=== PATIENT | female | born 1960 | race Caucasian/White ===

== ENCOUNTER 2017-01-25 18:37 | Inpatient (IN) | payer OTHER ==
[~2017-01-25] VITALS: Ht 167.6 cm; Wt 201.8 kg
[~2017-01-25 18:37] MED LIST: ACET-907; GABA600T2; HYDR25TA4; LISI-607; TRAM50TA2; VICODIN
[2017-01-25] MEDS ORDERED: MORPHINE SULFATE INJ 4 MG/ML DISP.SYRIN ONE (19:15)
[2017-01-25] MEDS ORDERED: ONDANSETRON HCL/PF 4 MG/2 ML VIAL ONE (19:15)
--- NOTE | 2017-01-25 19:20 | NUR ---
LAC #20 IVACCESS. BLOOD SAMPLE COLLECTED SENT TO LAB
[2017-01-25 19:28] LABS: BASOPHILS % (AUTO) 0.4 % (0.0-2.0); EOSINOPHILS # (AUTO) 0.2 /CMM (0.0-0.7); EOSINOPHILS % (AUTO) 2.1 % (0.0-6.0); HEMATOCRIT 34 % (33-45); HEMOGLOBIN 11.3 g/dL (11.5-14.8); LYMPHOCYTES # (AUTO) 1.1 /CMM (0.8-4.8); LYMPHOCYTES % (AUTO) 14.5 % (20.0-44.0); MEAN CORPUSCULAR HEMOGLOBIN 27 PG (26.0-33.0); MEAN CORPUSCULAR HGB CONC 34 g/dl (31.0-36.0); MEAN CORPUSCULAR VOLUME 79 fL (82-100); MONOCYTES # (AUTO) 0.6 /CMM (0.1-1.30); MONOCYTES % (AUTO) 7.8 % (2.0-12.0); NEUTROPHILS # (AUTO) 5.8 /CMM (1.8-8.9); NEUTROPHILS % (AUTO) 75.2 % (43.0-81.0); PLATELET COUNT (AUTO) 286 /CMM (150-450); RDW COEFFICIENT OF VARIATION 15.8 (11.5-15.0); RED BLOOD CELL COUNT(AUTO) 4.23 MIL/uL (4.0-5.2); WHITE BLOOD COUNT (AUTO) 7.7 K/uL (4.3-11.0)
[2017-01-25] MEDS ORDERED: IV NS 0.9% 1,000 ML BAG IV ONE (19:30)
[2017-01-25] MEDS ORDERED: ONDANSETRON HCL/PF 4 MG/2 ML VIAL IVP ONE (19:30)
[2017-01-25] MEDS ORDERED: MORPHINE SULFATE INJ 2 MG/ML DISP.SYRIN IV ONE (19:30)
--- NOTE | 2017-01-25 19:31 | NUR ---
EKG IN PROGRESS
[2017-01-25 19:43] LABS: INR 1.1 (0.87-1.13); PROTHROMBIN TIME 11.5 SECS (9.5-12.7)
[2017-01-25 19:46] LABS: ALANINE AMINOTRANSFERASE 39 U/L (12-78); ALBUMIN 3.4 g/dL (3.4-5.0); ALKALINE PHOSPHATASE 16 U/L (46-116); ASPARTATE AMINOTRANSFERASE 49 U/L (15-37); BILIRUBIN,DIRECT 0.2 mg/dL (0.0-0.2); BILIRUBIN,TOTAL 0.6 mg/dL (0.2-1.0); CALCIUM, SERUM 9.1 mg/dL (8.5-10.1); CARBON DIOXIDE 28 mmol/L (21-32); CHLORIDE 98 mmol/L (98-107); CREATININE 1.4 mg/dL (0.6-1.3); GLUCOSE 130 mg/dL (74-106); LIPASE 146 U/L (73-393); POTASSIUM 3.2 mmol/L (3.5-5.1); SODIUM SERUM 134 mmol/L (136-145); TOTAL PROTEIN, SERUM 6.8 g/dL (6.4-8.2)
[2017-01-25 19:47] LABS: TROPONIN I < 0.017 ng/mL (0.00-0.056)
[2017-01-25 19:54] LABS: UREA NITROGEN, BLOOD 30 mg/dL (7-18)
--- NOTE | 2017-01-25 20:06 | NUR ---
PT TAKENT TO XRAY VIA RACHEL
--- NOTE | 2017-01-25 20:06 | NUR ---
URINE SAMPLE COLLECTED SENT TO LAB
[2017-01-25] MEDS ORDERED: POTASSIUM CHLORIDE 20 MEQ TAB.PRT.SR PO ONE ×2 (20:30→20:43)
[2017-01-25 20:40] LABS: APPEARANCE,URINE Clear (CLEAR); BILIRUBIN,URINE Negative (NEGATIVE); BLOOD, URINE Trace-intact Ery/uL (NEGATIVE); COLOR,URINE Yellow (YELLOW); KETONES,URINE Negative (NEGATIVE); LEUKOCYTE ESTERASE ,URINE Small (NEGATIVE); NITRITE, URINE Positive (NEGATIVE); PH,URINE 5.5 (5.0-8.0); PROTEIN,URINE Negative (NEGATIVE); UGLUCOSE Negative (NEGATIVE)
[2017-01-25 20:52] LABS: BACTERIA,URINE Many /HPF (None Seen); SQUAMOUS EPITHELIAL CELL,UR Few /HPF (None Seen); WBC,URINE 21-50 /HPF (0-3)
[2017-01-25] MEDS ORDERED: LEVOFLOXACIN 500 MG /D5W 100ML 100 ML IV ONE (21:11)
[2017-01-25 21:15] VITALS: BP 109/50
--- NOTE | 2017-01-25 21:16 | NUR ---
CALLED INA AT [facility] AND WAS INFORMED THERE ARE NO ADULT BEDS AVAILABLE AT [facility] OR ANY [facility] FACILITY
[2017-01-25] MEDS ORDERED: LEVOFLOXACIN 500 MG /D5W 100ML 500 MG/100 ML PIGGYBACK IV ONE (21:30)
[2017-01-25] MEDS ORDERED: LISI10TA5 PO (21:34)
[2017-01-25] MEDS ORDERED: FURO20TA4 PO (21:34)
[2017-01-25] MEDS ORDERED: GABA600T2 PO (21:34)
[2017-01-25] MEDS ORDERED: DOCU-170 PO (21:34)
[2017-01-25] MEDS ORDERED: POTA10CA43 PO (21:34)
[2017-01-25] MEDS ORDERED: HYDR25TA4 PO (21:34)
[2017-01-25] MEDS ORDERED: FLUT16SP16 NS (21:34)
[2017-01-25] MEDS ORDERED: LORA10TA7 PO (21:34)
--- NOTE | 2017-01-25 21:47 | NUR ---
GAVE REPORT TO DOMINGO CORTEZ .FRAN CORTEZ ADMITTING DX UTI, BACK STRAIN. JUNG STACY ADMITTING MEDSURG.
[2017-01-25] MEDS ORDERED: IV NS 0.9% 1,000 ML IV PRN (22:52)
[2017-01-25] MEDS ORDERED: HYDROCODONE/APAP 5/325MG 1 EACH TABLET PO PRN (23:00)
[2017-01-25] MEDS ORDERED: MAG HYDROX/AL HYDROX/SIMETH 30 ML UDC PO PRN (23:00)
[2017-01-25] MEDS ORDERED: MORPHINE SULFATE INJ 2 MG/ML DISP.SYRIN IV PRN (23:00)
[2017-01-25] MEDS ORDERED: LEVOFLOXACIN 500 MG /D5W 100ML 500 MG in PREMIX 1 EA IV SCH (23:00)
[2017-01-25] MEDS ORDERED: ONDANSETRON HCL/PF 4 MG/2 ML VIAL IVP PRN (23:00)
[2017-01-25] MEDS ORDERED: NA PHOS,M-B/NA PHOS,DI-BA 1 EA ENEMA RC ONE (23:00)
[2017-01-25] MEDS ORDERED: Z GUARD REMEDY 2 OZ OINT TP PRN (23:00)
[2017-01-25] MEDS ORDERED: MAGNESIUM HYDROXIDE 30 ML UDC PO PRN (23:00)
--- NOTE | 2017-01-25 23:25 | NUR ---
AWAITING FOR BARIATRIC BED GAVE REPORT TO ROLY FOR DANIELLE
--- NOTE | 2017-01-25 23:35 | NUR ---
CALLED JANE COY FOR STATUS ON BARIATRIC BED. EXPECTING CALL BACK FROM MILLED RUBBER TENDER
[2017-01-25 23:55] VITALS: BP 109/50
--- NOTE | 2017-01-25 23:55 | NUR ---
MS/RN OPENING NOTES PT ARRIVED TO UNIT VIA GURNEY FROM ER. TRANSFERRED TO [facility] BED. PT PLACED ON O2 VIA NC. BREATHING EVEN AND UNLABORED. DENIES SOB OR S/S OF DISTRESS. IV TO LAC PATENT AND INTACT, FLUSHES WELL WITH NO PAIN OR SIGNS OF INFILTRATION. ORIENTED PT TO ROOM AND CALL LIGHT/BED CONTROLS. BED IN LOW/LOCKED POSITION, CALL LIGHT IN REACH. SIDE RAILS UP. EXTREMITIES OFFLOADED. WILL CONTINUE TO MONITOR
[2017-01-26] VITALS: BP 109/50
[2017-01-26] MEDS ORDERED: NA PHOS,M-B/NA PHOS,DI-BA 1 EA ENEMA RC ONE (00:14)
--- NOTE | 2017-01-26 01:00 | NUR ---
MS/RN NOTES LEVAQUIN NON-ADMINISTERED. PT RECEIVED IN THE ER. ADMINISTERED FLEET ENEMA SCHEDULED. WILL MONITOR FOR EFFECTIVENESS.
[2017-01-26] MEDS: IV NS 0.9% 1,000 ML IV PRN ×2 (03:05→16:33)
[2017-01-26 06:35] LABS: BASOPHILS % (AUTO) 0.4 % (0.0-2.0); EOSINOPHILS # (AUTO) 0.1 /CMM (0.0-0.7); EOSINOPHILS % (AUTO) 1.5 % (0.0-6.0); HEMATOCRIT 32 % (33-45); HEMOGLOBIN 10.7 g/dL (11.5-14.8); LYMPHOCYTES # (AUTO) 0.8 /CMM (0.8-4.8); LYMPHOCYTES % (AUTO) 11.9 % (20.0-44.0); MEAN CORPUSCULAR HEMOGLOBIN 27 PG (26.0-33.0); MEAN CORPUSCULAR HGB CONC 34 g/dl (31.0-36.0); MEAN CORPUSCULAR VOLUME 79 fL (82-100); MONOCYTES # (AUTO) 0.5 /CMM (0.1-1.30); NEUTROPHILS # (AUTO) 5.2 /CMM (1.8-8.9); NEUTROPHILS % (AUTO) 79.2 % (43.0-81.0); PLATELET COUNT (AUTO) 240 /CMM (150-450); RED BLOOD CELL COUNT(AUTO) 3.97 MIL/uL (4.0-5.2); WHITE BLOOD COUNT (AUTO) 6.5 K/uL (4.3-11.0)
[2017-01-26 07:05] LABS: ALBUMIN 2.7 g/dL (3.4-5.0); BILIRUBIN,DIRECT 0.1 mg/dL (0.0-0.2); BILIRUBIN,TOTAL 0.4 mg/dL (0.2-1.0); CALCIUM, SERUM 8.5 mg/dL (8.5-10.1); MAGNESIUM 1.9 mg/dL (1.8-2.4); PHOSPHORUS 4.8 mg/dL (2.5-4.9); POTASSIUM 3.2 mmol/L (3.5-5.1)
[2017-01-26 07:07] LABS: THYROID STIMULATING HORMONE 2.382 uIU/mL (0.358-3.74)
--- NOTE | 2017-01-26 07:15 | NUR ---
MS/RN CLOSING NOTES PT ASLEEP, EASILY AROUSABLE TO NAME. ON 2LPM O2 VIA NC. BREATHING EVEN AND UNLABORED. NO S/S OF DISTRESS NOTED. DENIES PAIN AT THIS TIME, BUT NOTES TINGLING TO RIGHT HAND. IV TO LAC RUNNING IVF ORDERED. TURNED/REPOSITIONED Q2H, EXTREMITIES OFFLOADED. ALL NEEDS MET AND ATTENDED. FLEET ENEMA ADMINISTERED WITH 1 MEDIUM SIZE BM. BED IN LOW/LOCKED POSITION, CALL LIGHT IN REACH. SIDE RAILS UP. ENDORSED TO AM SHIFT DANIELLE.
--- NOTE | 2017-01-26 07:20 | NUR ---
RN NOTES RECEIVED PT IN BED, SLEEPING IN SEMI-FOWLERS POSITION. NO SOB OR SIGNS OF DISTRESS. IV ON LAC RUNNING NS AT 75ML/HR. SAFETY MEASURES ARE IN PLACE. WILL CONTINUE TO MONITOR.
[2017-01-26 08:00] VITALS: BP_SYST 117; BP_DIAS 50; BP_DIAS 58
[2017-01-26] MEDS: GABAPENTIN 300 MG CAPSULE PO SCH ×3 (08:18→16:31)
[2017-01-26] MEDS: PANTOPRAZOLE 40 MG TABLET.DR PO SCH (08:18)
[2017-01-26] MEDS: DOCUSATE SODIUM 100 MG CAPSULE PO SCH ×2 (08:18→16:31)
[2017-01-26] MEDS: LACTOBACILLUS RHAMNOSUS GG 1 EACH CAP.SPRINK PO SCH ×2 (08:18→16:31)
[2017-01-26] MEDS: POTASSIUM CHLORIDE 10 MEQ TABLET.SA PO SCH ×2 (08:18→16:31)
[2017-01-26] MEDS: LISINOPRIL (10MG) 10 MG TABLET PO SCH (08:18)
[2017-01-26] MEDS: FUROSEMIDE 20 MG TABLET PO SCH ×2 (08:18→16:31)
[2017-01-26] MEDS: LORATADINE 10 MG TABLET PO SCH (08:18)
[2017-01-26] MEDS: FLUTICASONE PROPIONATE 16 GM BOTTLE NS SCH (10:07)
[2017-01-26] MEDS ORDERED: TRAMADOL HCL 50 MG TABLET PO PRN (10:30)
--- NOTE | 2017-01-26 10:56 | NUR ---
PT IS NPO PENDING CHEST CT SCAN. POTASSIUM TABLETS WILL BE ADMINISTERED AFTER SCAN DONE.
--- NOTE | 2017-01-26 12:18 | NUR ---
patient does not fit in to the gantry of scanner , spoke to Mr Dennis and was notified at 1200hrs
[2017-01-26] MEDS: POTASSIUM CHLORIDE 20 MEQ TAB.PRT.SR PO SCH ×4 (12:23→15:22)
[2017-01-26 16:00] VITALS: BP 124/57
--- NOTE | 2017-01-26 18:25 | NUR ---
RADIOLOGY EXPLAINED THEY WOULD BE UNABLE TO DO CT-SCAN ORDERED DUE TO PTS SIZE AND WEIGHT. JUNG STACY ACADEMIC SUPPORT DIRECTOR WAS MADE AWARE. SCAN WAS CANCELED.
--- NOTE | 2017-01-26 19:03 | NUR ---
PT IS IN BED, RESTING COMFORTABLY. PT ON 2L OF O2 IA NASAL CANNULA, SATING 94. NO SOB OR SIGNS OF DISTRESS. PT IS CLEAN AND DRY, MEPILEX AND Z-GUARD WERE APPLIED TO WOUNDS. ALL MEDS WERE GIVEN ORDERED. IV ON LAC RUNNING NS AT 75ML/HR. WILL ENDORSE TO RATE ANALYST RN FOR CONTINUITY OF CARE.
--- NOTE | 2017-01-26 19:35 | NUR ---
MS RN INITIAL NOTES PT IS IN BED RESTING IN SEMI FOWLERS POSITION WITH FAMILY AT BEDSIDE. NO SIGNS ON SOB OR DISTRESS. IV ON LAC RUNNING WITH AT 75ML/HR. OVERHEAD TRAPEZE IN PLACE. O2 NC AT 2 L, TOLERATING WELL. COMPLAINTS OF TINGLING IN HANDS, STATES JUST NEEDS TO BE REPOSITIONED. SWAGE TENDER ADVISED TO HELP. BED IS IN LOW AND LOCKED POSITION, CALL LIGHT IS WITHIN REACH. WILL CONTINUE TO MONITOR PT
[2017-01-26 20:00] VITALS: BP 109/50
[2017-01-26] MEDS: HEPARIN SODIUM, PORCINE 5000 UNITS/1 ML VIAL SQ SCH (21:11)
[2017-01-26] MEDS: LEVOFLOXACIN 500 MG /D5W 100ML 500 MG in PREMIX 1 EA IV SCH (21:11)
--- NOTE | 2017-01-27 03:40 | NUR ---
PRN MEDS PT STATED THAT SHE FELT WARM, TEMP WAS TAKEN- 99.7. COOLING MEASURES WERE INITIATED AND TYLENOL WAS GIVEN.
[2017-01-27] MEDS: ACETAMINOPHEN 325 MG TABLET PO PRN (03:45)
[2017-01-27] MEDS: IV NS 0.9% 1,000 ML IV PRN (05:21)
--- NOTE | 2017-01-27 05:27 | NUR ---
TEMP WENT DOWN TO 98.7 WILL CONTINUE TO MONITOR PT
--- NOTE | 2017-01-27 06:39 | NUR ---
MS RN CLOSING NOTES PT IS IN BED RELAXING, A/O X3. ON 2L O2 VIA NC. BREATHING EVEN AND UNLABORED. NO S/S OF DISTRESS NOTED. DENIES PAIN AT THIS TIME, BUT NOTES TINGLING TO RIGHT HAND WITH SWELLING. IV TO LAC RUNNING AT 75 ML/HR. TURNED/REPOSITIONED Q2H, EXTREMITIES OFFLOADED. LOW GRADE FEVER WAS ADDRESS AND HAS NOW IMPROVED. BED IN LOW/LOCKED POSITION, CALL LIGHT IN REACH. SIDE RAILS UP. WILL ENDORSED TO AM SHIFT.
[2017-01-27 07:34] LABS: CALCIUM, SERUM 8.1 mg/dL (8.5-10.1); CREATININE 0.9 mg/dL (0.6-1.3); MAGNESIUM 1.7 mg/dL (1.8-2.4); POTASSIUM 4.1 mmol/L (3.5-5.1)
[2017-01-27 07:54] LABS: BASOPHILS % (AUTO) 0.4 % (0.0-2.0); EOSINOPHILS # (AUTO) 0.1 /CMM (0.0-0.7); EOSINOPHILS % (AUTO) 1.6 % (0.0-6.0); HEMATOCRIT 30 % (33-45); HEMOGLOBIN 10.1 g/dL (11.5-14.8); LYMPHOCYTES % (AUTO) 16.9 % (20.0-44.0); MEAN CORPUSCULAR HEMOGLOBIN 27 PG (26.0-33.0); MEAN CORPUSCULAR HGB CONC 33 g/dl (31.0-36.0); MEAN CORPUSCULAR VOLUME 80 fL (82-100); MONOCYTES # (AUTO) 0.5 /CMM (0.1-1.30); MONOCYTES % (AUTO) 7.5 % (2.0-12.0); NEUTROPHILS # (AUTO) 4.5 /CMM (1.8-8.9); NEUTROPHILS % (AUTO) 73.6 % (43.0-81.0); PLATELET COUNT (AUTO) 232 /CMM (150-450); RDW COEFFICIENT OF VARIATION 17.1 (11.5-15.0); RED BLOOD CELL COUNT(AUTO) 3.77 MIL/uL (4.0-5.2); WHITE BLOOD COUNT (AUTO) 6.2 K/uL (4.3-11.0)
[2017-01-27 08:00] VITALS: BP 98/59
[2017-01-27] MEDS: LISINOPRIL (10MG) 10 MG TABLET PO SCH (09:00)
[2017-01-27] MEDS: PANTOPRAZOLE 40 MG TABLET.DR PO SCH (09:13)
[2017-01-27] MEDS: GABAPENTIN 300 MG CAPSULE PO SCH ×3 (09:13→17:17)
[2017-01-27] MEDS: LACTOBACILLUS RHAMNOSUS GG 1 EACH CAP.SPRINK PO SCH ×2 (09:14→17:17)
[2017-01-27] MEDS: ASCORBIC ACID 500 MG TABLET PO SCH (09:14)
[2017-01-27] MEDS: FUROSEMIDE 20 MG TABLET PO SCH ×2 (09:15→17:17)
[2017-01-27] MEDS: DOCUSATE SODIUM 100 MG CAPSULE PO SCH ×2 (09:16→17:17)
[2017-01-27] MEDS: POTASSIUM CHLORIDE 10 MEQ TABLET.SA PO SCH ×2 (09:16→17:17)
[2017-01-27] MEDS: LORATADINE 10 MG TABLET PO SCH (09:16)
[2017-01-27] MEDS: MULTIVITAMINS,THERAGRAN 1 UDTAB TABLET PO SCH (09:20)
[2017-01-27] MEDS: PROSOURCE / PROSTAT (PYXIS) 30 ML UDC PO SCH (09:21)
[2017-01-27] MEDS: HEPARIN SODIUM, PORCINE 5000 UNITS/1 ML VIAL SQ SCH ×2 (09:30→20:33)
[2017-01-27] MEDS ORDERED: MAGNESIUM OXIDE 400 MG TABLET PO ONE (10:30)
[2017-01-27] MEDS: FLUTICASONE PROPIONATE 16 GM BOTTLE NS SCH (11:07)
[2017-01-27] MEDS: ALBUTEROL FS 2.5 MG/3 ML VIAL.NEB NEB PRN (14:54)
[2017-01-27] MEDS: IPRATROPIUM NEB FS 0.5 MG/2.5 ML AMPUL.NEB NEB PRN (14:54)
[2017-01-27 16:05] VITALS: BP 132/71
--- NOTE | 2017-01-27 18:24 | NUR ---
RN NOTES PT IN BED, RESTING COMFORTABLY. PT ON 2L OF O2 IA NASAL CANNULA, SATING 94%. NO SOB OR SIGNS OF DISTRESS. PT IS CLEAN AND DRY, MEPILEX AND Z-GUARD WERE APPLIED TO WOUNDS. ALL MEDS WERE GIVEN ORDERED. IV SALINE LOCKED PATENT AND INTACT NO REDNESS OR INFILTRATION NOTED. WILL ENDORSE TO CAN PUSHER RN FOR CONTINUITY OF CARE.
--- NOTE | 2017-01-27 19:35 | NUR ---
MS RN INITIAL NOTES PT RECIEVED IN BED. NO SIGNS OF SOB OR DISTRESS. IV ACCESS INTACT AND PATENT. PT ON AIR MATTRESS. IVF HAVE BEEN DISCONTINUED. WILL CONTINUE TO MONITOR PT
[2017-01-27 20:00] VITALS: BP 138/74
[2017-01-27] MEDS: LEVOFLOXACIN 500 MG /D5W 100ML 500 MG in PREMIX 1 EA IV SCH (20:08)
--- NOTE | 2017-01-28 04:15 | NUR ---
PRN MEDS PT COMPLAINTS OF DIFFICULTY BREATHING, REQUESTING PRN BREATHING TREATMENTS. RESPIRATORY WAS CALLED. WILL CONTINUE TO MONITOR PT
[2017-01-28] MEDS: IPRATROPIUM NEB FS 0.5 MG/2.5 ML AMPUL.NEB NEB PRN ×2 (04:28→23:37)
[2017-01-28] MEDS: ALBUTEROL FS 2.5 MG/3 ML VIAL.NEB NEB PRN ×2 (04:28→23:37)
--- NOTE | 2017-01-28 05:50 | NUR ---
BREATHING TX PT IS NOW RESTING IN BED, NO SIGNS OF SOB OR DISTRESS. STATES THERE HAS BEEN IMPROVEMENT IN BREATHING. WILL CONTINUE TO MONITOR PT
--- NOTE | 2017-01-28 06:49 | NUR ---
MS RN CLOSING NOTES PT IS IN BED RELAXING, A/O X3. ON 2L O2 VIA NC. BREATHING EVEN AND UNLABORED. NO S/S OF DISTRESS NOTED. DENIES PAIN AT THIS TIME. IV TO LAC RUNNING AT 75 ML/HR. TURNED/REPOSITIONED Q2H, EXTREMITIES OFFLOADED. BREATHING TX WAS ADMINISTERED. BED IN LOW/LOCKED POSITION, CALL LIGHT IN REACH. SIDE RAILS UP. WILL ENDORSED TO AM SHIFT.
--- NOTE | 2017-01-28 07:30 | NUR ---
MS RN NOTES RECEIVED REPORT WITH PATIENT A/OX4. NO S/S OF SOB OR DISTRESS NOTED. DENIES PAIN. IV PATENT AND INTACT. CALL LIGHT WITHIN REACH. WILL CONTINUE TO MONITOR THROUGHOUT SHIFT.
[2017-01-28 08:00] VITALS: BP 111/53
[2017-01-28] MEDS ORDERED: Z GUARD REMEDY 2 OZ OINT TP PRN (08:00)
--- NOTE | 2017-01-28 08:01 | NUR ---
WOUND CARE CONSULT PLEASE SEE MULTIMEDIA ASSISTANT ASSESSMENT IN PCS FOR TODAY ALONG WITH ALL RECOMMENDATIONS. RECOMMEND PODIATRY CONSULT FOR THE RIGHT GREAT TOE WOUND DUE TO TRAUMA PER PATIENT STATEMENT POA. PATIENT NOTED TO BE MORBIDLY OBESE, CANNOT TURN BY HERSELF. REQUIRES TURNING SCHED Q 2 HOURS AND BILATERAL HEEL FLOATING. CONTINUE USE OF Z GUARD ORDERED FOR ALL AREAS OF MOISTURE ASSOCIATED SKIN EXCORIATIONS NOTED IN ASSESSMENT. ON NATHANIEL MAX 2 BED WITH ETS AIR. ALL DISCUSSED WITH NURSING AT THE BEDSIDE. OVER HEAD TRAPEZE IN PLACE SO PATIENT MAY USE TO ASSIST WITH REPOSITIONING. Addendum: 01/28/17 at 0804 by SIRISHA MARCUS WNDNU Amended: Links added.
[2017-01-28] MEDS: LISINOPRIL (10MG) 10 MG TABLET PO SCH (09:00)
[2017-01-28] MEDS ORDERED: Z GUARD REMEDY 4 OZ OINT TP PRN (09:00)
[2017-01-28] MEDS: FLUTICASONE PROPIONATE 16 GM BOTTLE NS SCH (09:43)
[2017-01-28] MEDS: NEOMY SULF/BACITRAC ZN/POLY 15 GM TUBE TP SCH (09:43)
[2017-01-28] MEDS: PROSOURCE / PROSTAT (PYXIS) 30 ML UDC PO SCH (09:43)
[2017-01-28] MEDS: LACTOBACILLUS RHAMNOSUS GG 1 EACH CAP.SPRINK PO SCH ×2 (09:45→17:40)
[2017-01-28] MEDS: GABAPENTIN 300 MG CAPSULE PO SCH ×3 (09:45→17:41)
[2017-01-28] MEDS: ASCORBIC ACID 500 MG TABLET PO SCH (09:45)
[2017-01-28] MEDS: LORATADINE 10 MG TABLET PO SCH (09:45)
[2017-01-28] MEDS: MULTIVITAMINS,THERAGRAN 1 UDTAB TABLET PO SCH (09:45)
[2017-01-28] MEDS: FUROSEMIDE 20 MG TABLET PO SCH ×2 (09:46→17:41)
[2017-01-28] MEDS: HEPARIN SODIUM, PORCINE 5000 UNITS/1 ML VIAL SQ SCH ×2 (09:46→20:58)
[2017-01-28] MEDS: POTASSIUM CHLORIDE 10 MEQ TABLET.SA PO SCH ×2 (09:46→17:41)
[2017-01-28] MEDS: DOCUSATE SODIUM 100 MG CAPSULE PO SCH ×2 (09:46→17:41)
[2017-01-28] MEDS: PANTOPRAZOLE 40 MG TABLET.DR PO SCH (09:49)
[2017-01-28 10:06] LABS: BASOPHILS % (AUTO) 0.3 % (0.0-2.0); EOSINOPHILS # (AUTO) 0.2 /CMM (0.0-0.7); EOSINOPHILS % (AUTO) 2.8 % (0.0-6.0); HEMATOCRIT 32 % (33-45); HEMOGLOBIN 10.6 g/dL (11.5-14.8); LYMPHOCYTES # (AUTO) 0.9 /CMM (0.8-4.8); MEAN CORPUSCULAR HEMOGLOBIN 27 PG (26.0-33.0); MEAN CORPUSCULAR HGB CONC 34 g/dl (31.0-36.0); MEAN CORPUSCULAR VOLUME 79 fL (82-100); MONOCYTES # (AUTO) 0.4 /CMM (0.1-1.30); MONOCYTES % (AUTO) 5.7 % (2.0-12.0); NEUTROPHILS # (AUTO) 5.1 /CMM (1.8-8.9); NEUTROPHILS % (AUTO) 77.2 % (43.0-81.0); PLATELET COUNT (AUTO) 268 /CMM (150-450); RDW COEFFICIENT OF VARIATION 17.1 (11.5-15.0); RED BLOOD CELL COUNT(AUTO) 3.98 MIL/uL (4.0-5.2); WHITE BLOOD COUNT (AUTO) 6.6 K/uL (4.3-11.0)
[2017-01-28 10:16] LABS: CALCIUM, SERUM 8.4 mg/dL (8.5-10.1); CREATININE 0.8 mg/dL (0.6-1.3); POTASSIUM 4.3 mmol/L (3.5-5.1)
[2017-01-28 10:23] LABS: MAGNESIUM 1.6 mg/dL (1.8-2.4)
[2017-01-28] MEDS ORDERED: FUROSEMIDE 20 MG TABLET PO ONE (10:30)
[2017-01-28] MEDS ORDERED: MAGNESIUM OXIDE 400 MG TABLET PO ONE (10:30)
[2017-01-28 16:00] VITALS: BP 120/44
--- NOTE | 2017-01-28 18:57 | NUR ---
MS RN NOTES PATIENT A/OX4. NO DISTRESS OR SOB. ALL PATIENT NEEDS HAVE BEEN MET THROUGHOUT SHIFT. IV PATENT AND INTACT. CALL LIGHT WITHIN REACH. WILL ENDORSE TO PM SHIFT.
--- NOTE | 2017-01-28 19:30 | NUR ---
MS RN OPENING NOTES: RECEIVED PT IN BED WITH 2 FAMILY MEMBERS AT BEDSIDE. PT IS AWAKE AND IS A/OX4. NO S/S OR DISTRESS NOTED AT THIS TIME. PT DENIES ANY PAIN AT THIS TIME. IV PATENT AND INTACT ON L AC #22G AND IS CURRENTLY S/L. CALL LIGHT WITHIN PT'S REACH. WILL CONTINUE TO MONITOR PT.
[2017-01-28 20:00] VITALS: BP 116/55
[2017-01-28] MEDS: LEVOFLOXACIN 500 MG /D5W 100ML 500 MG in PREMIX 1 EA IV SCH (20:14)
[2017-01-28] MEDS: ACETAMINOPHEN 325 MG TABLET PO PRN (20:55)
--- NOTE | 2017-01-28 20:55 | NUR ---
MS RN NOTES: PT WAS ADMINISTERED ACETAMINOPHEN 650MG PO. WILL CONTINUE TO MONITOR PT.
[2017-01-28] MEDS: POLYETHYLENE GLYCOL 3350 17 GM POWD.PACK PO SCH (21:44)
--- NOTE | 2017-01-28 21:44 | NUR ---
MS RN NOTES: PT REFUSED SCHEDULED 2200 MIRALAX 17GM. PT REPORTED THAT SHE ALREADY HAD 2 BOWEL MOVEMENTS TODAY.
[2017-01-29] VITALS: BP 152/62
[2017-01-29 06:38] LABS: BASOPHILS % (AUTO) 0.4 % (0.0-2.0); EOSINOPHILS # (AUTO) 0.3 /CMM (0.0-0.7); EOSINOPHILS % (AUTO) 4.4 % (0.0-6.0); HEMATOCRIT 33 % (33-45); HEMOGLOBIN 10.8 g/dL (11.5-14.8); LYMPHOCYTES # (AUTO) 1.4 /CMM (0.8-4.8); MEAN CORPUSCULAR HEMOGLOBIN 27 PG (26.0-33.0); MEAN CORPUSCULAR HGB CONC 33 g/dl (31.0-36.0); MEAN CORPUSCULAR VOLUME 81 fL (82-100); MONOCYTES # (AUTO) 0.4 /CMM (0.1-1.30); MONOCYTES % (AUTO) 6.1 % (2.0-12.0); NEUTROPHILS # (AUTO) 4.7 /CMM (1.8-8.9); NEUTROPHILS % (AUTO) 69.1 % (43.0-81.0); PLATELET COUNT (AUTO) 264 /CMM (150-450); RDW COEFFICIENT OF VARIATION 17.6 (11.5-15.0); RED BLOOD CELL COUNT(AUTO) 4.04 MIL/uL (4.0-5.2); WHITE BLOOD COUNT (AUTO) 6.9 K/uL (4.3-11.0)
[2017-01-29 06:57] LABS: CALCIUM, SERUM 8.2 mg/dL (8.5-10.1); CREATININE 0.8 mg/dL (0.6-1.3); POTASSIUM 4.4 mmol/L (3.5-5.1)
--- NOTE | 2017-01-29 07:00 | NUR ---
MS RN CLOSING NOTES: ALL NEEDS WERE ATTENDED AND ANTICIPATED FOR. PT IS AWAKE AND IS RESTING IN BED. PT IS A/OX4. NO S/S OR DISTRESS NOTED AT THIS TIME. PT DENIES ANY PAIN AT THIS TIME. PT KEPT CLEAN, DRY, AND COMFORTABLE. IV PATENT AND INTACT ON L AC #22G AND IS CURRENTLY S/L. CALL LIGHT WITHIN PT'S REACH. ENDORSED TO AM NURSE FOR DANIELLE.
[2017-01-29 08:00] VITALS: BP 118/62
--- NOTE | 2017-01-29 08:00 | NUR ---
MS RN NOTES RECEIVED REPORT WITH PATIENT IN STABLE CONDITION. PATIENT IS A/OX4. NO S/S OF SOB OR DISTRESS. IV IS PATENT AND INTACT, CALL LIGHT IS WITHIN REACH. SAFETY MEASURES IMPLEMENTED. WILL CONTINUE TO MONITOR THROUGHOUT SHIFT.
[2017-01-29] MEDS: NEOMY SULF/BACITRAC ZN/POLY 15 GM TUBE TP SCH (10:19)
[2017-01-29] MEDS: LACTOBACILLUS RHAMNOSUS GG 1 EACH CAP.SPRINK PO SCH ×2 (10:20→17:28)
[2017-01-29] MEDS: POTASSIUM CHLORIDE 10 MEQ TABLET.SA PO SCH ×2 (10:20→17:28)
[2017-01-29] MEDS: GABAPENTIN 300 MG CAPSULE PO SCH ×3 (10:20→17:28)
[2017-01-29] MEDS: MULTIVITAMINS,THERAGRAN 1 UDTAB TABLET PO SCH (10:20)
[2017-01-29] MEDS: ASCORBIC ACID 500 MG TABLET PO SCH (10:20)
[2017-01-29] MEDS: DOCUSATE SODIUM 100 MG CAPSULE PO SCH ×2 (10:20→17:28)
[2017-01-29] MEDS: LISINOPRIL (10MG) 10 MG TABLET PO SCH (10:21)
[2017-01-29] MEDS: LORATADINE 10 MG TABLET PO SCH (10:21)
[2017-01-29] MEDS: FUROSEMIDE 20 MG TABLET PO SCH ×2 (10:21→17:28)
[2017-01-29] MEDS: PANTOPRAZOLE 40 MG TABLET.DR PO SCH (10:21)
[2017-01-29] MEDS: PROSOURCE / PROSTAT (PYXIS) 30 ML UDC PO SCH (10:23)
[2017-01-29] MEDS: FLUTICASONE PROPIONATE 16 GM BOTTLE NS SCH (10:24)
[2017-01-29] MEDS: HEPARIN SODIUM, PORCINE 5000 UNITS/1 ML VIAL SQ SCH ×2 (10:25→21:17)
[2017-01-29] MEDS: IPRATROPIUM NEB FS 0.5 MG/2.5 ML AMPUL.NEB NEB PRN (11:52)
[2017-01-29] MEDS: ALBUTEROL FS 2.5 MG/3 ML VIAL.NEB NEB PRN (11:52)
[2017-01-29 16:00] VITALS: BP 120/71
--- NOTE | 2017-01-29 18:51 | NUR ---
MS RN NOTES PATIENT A/OX4, NO S/S OF SOB OR DISTRESS. IV PATENT AND INTACT. ALL PATIENT NEEDS HAVE BEEN MET. BED IS IN LOW, LOCKED POSITION. CALL LIGHT WITHIN REACH. WILL ENDORSE CARE TO PM SHIFT.
--- NOTE | 2017-01-29 19:45 | NUR ---
MS/LEAF COVERER; RECEIVED PT IN BED AWAKE, ALERT AND ORIENTED. PT SAID I AM OK. WITH O2 2L NC ON. BREATHING NON LABORED. WITH HL ON LAC INTACT. BED ON LOWER POSITION AND LOCKED FOR SAFETY. SIDE RAILS ARE UP FOR SAFETY. PT INSTRUCTED TO CALL FOR HELP. CALL LIGHT WITHIN REACH.
[2017-01-29 20:00] VITALS: BP 143/57
[2017-01-29] MEDS ORDERED: LEVOFLOXACIN (500MG) 500 MG TABLET PO SCH (21:00)
[2017-01-29] MEDS: POLYETHYLENE GLYCOL 3350 17 GM POWD.PACK PO SCH (21:18)
[2017-01-29] MEDS: ACETAMINOPHEN 325 MG TABLET PO PRN (23:00)
--- NOTE | 2017-01-29 23:00 | NUR ---
MS/QUICK MIXER OPERATOR; C/O HEADACHE. TYLENOL 650 MG PO Q6 PRN GIVEN AT THIS TIME.
[2017-01-30] MEDS: ALBUTEROL FS 2.5 MG/3 ML VIAL.NEB NEB PRN ×2 (07:00→16:28)
[2017-01-30] MEDS: IPRATROPIUM NEB FS 0.5 MG/2.5 ML AMPUL.NEB NEB PRN ×2 (07:00→16:28)
--- NOTE | 2017-01-30 07:00 | NUR ---
MS/SUBSTANCE ABUSE RN; SLEPT FAIRLY. ASKED FOR BREATHING TREATMENT I PLACED A CALL TO RT AND PT MADE AWARE RT IS COMING. CONTINUE TO MONITOR. CALL LIGHT WITHIN REACH. WILL ENDORSE TO THE DAY SHIFT NURSE.
[2017-01-30 07:10] LABS: BASOPHILS % (AUTO) 0.5 % (0.0-2.0); EOSINOPHILS # (AUTO) 0.3 /CMM (0.0-0.7); EOSINOPHILS % (AUTO) 3.8 % (0.0-6.0); HEMATOCRIT 33 % (33-45); LYMPHOCYTES # (AUTO) 1.3 /CMM (0.8-4.8); LYMPHOCYTES % (AUTO) 19.5 % (20.0-44.0); MEAN CORPUSCULAR HEMOGLOBIN 27 PG (26.0-33.0); MEAN CORPUSCULAR HGB CONC 34 g/dl (31.0-36.0); MEAN CORPUSCULAR VOLUME 80 fL (82-100); MONOCYTES # (AUTO) 0.4 /CMM (0.1-1.30); MONOCYTES % (AUTO) 5.8 % (2.0-12.0); NEUTROPHILS # (AUTO) 4.7 /CMM (1.8-8.9); NEUTROPHILS % (AUTO) 70.4 % (43.0-81.0); PLATELET COUNT (AUTO) 304 /CMM (150-450); RDW COEFFICIENT OF VARIATION 17.5 (11.5-15.0); RED BLOOD CELL COUNT(AUTO) 4.09 MIL/uL (4.0-5.2); WHITE BLOOD COUNT (AUTO) 6.7 K/uL (4.3-11.0)
--- NOTE | 2017-01-30 07:30 | NUR ---
AM RN NOTE Received patient sleeping comfortably in her bed, no acute distress noted. IV site intact and patent. Bed in low locked position. Will continue to monitor.
[2017-01-30 07:59] LABS: CALCIUM, SERUM 8.4 mg/dL (8.5-10.1); CREATININE 0.8 mg/dL (0.6-1.3); POTASSIUM 4.1 mmol/L (3.5-5.1)
[2017-01-30 08:00] VITALS: BP 123/56
[2017-01-30] MEDS: PANTOPRAZOLE 40 MG TABLET.DR PO SCH (08:03)
[2017-01-30] MEDS: LORATADINE 10 MG TABLET PO SCH (08:03)
[2017-01-30] MEDS: FLUTICASONE PROPIONATE 16 GM BOTTLE NS SCH (08:03)
[2017-01-30] MEDS: FUROSEMIDE 20 MG TABLET PO SCH ×2 (08:04→17:02)
[2017-01-30] MEDS: DOCUSATE SODIUM 100 MG CAPSULE PO SCH ×2 (08:04→17:03)
[2017-01-30] MEDS: POTASSIUM CHLORIDE 10 MEQ TABLET.SA PO SCH ×2 (08:04→17:02)
[2017-01-30] MEDS: LACTOBACILLUS RHAMNOSUS GG 1 EACH CAP.SPRINK PO SCH ×2 (08:04→17:02)
[2017-01-30] MEDS: GABAPENTIN 300 MG CAPSULE PO SCH ×3 (08:04→17:02)
[2017-01-30] MEDS: ASCORBIC ACID 500 MG TABLET PO SCH (08:04)
[2017-01-30] MEDS: LISINOPRIL (10MG) 10 MG TABLET PO SCH (08:05)
[2017-01-30] MEDS: ACETAMINOPHEN 325 MG TABLET PO PRN (08:05)
[2017-01-30] MEDS: HEPARIN SODIUM, PORCINE 5000 UNITS/1 ML VIAL SQ SCH (08:14)
[2017-01-30] MEDS: PROSOURCE / PROSTAT (PYXIS) 30 ML UDC PO SCH (08:22)
[2017-01-30] MEDS: MULTIVITAMINS,THERAGRAN 1 UDTAB TABLET PO SCH (08:23)
[2017-01-30] MEDS: NEOMY SULF/BACITRAC ZN/POLY 15 GM TUBE TP SCH (08:24)
--- NOTE | 2017-01-30 10:00 | NUR ---
AM RN NOTE Patient seen and assessed by Epifanoi CALLEJAS and per him try to wean off O2 and check O2 sat @ RA. O2 sat 93% @ RA.
[2017-01-30] MEDS ORDERED: FUROSEMIDE 20 MG TABLET PO ONE (11:30)
[2017-01-30 12:00] VITALS: BP 131/75
[2017-01-30 16:00] VITALS: BP 143/73
--- NOTE | 2017-01-30 18:27 | NUR ---
FEMI RN NOTE Discharge home with home health order given by Epifanio CALLEJAS noted and carried out. Exitcare done. Skin pictures taken and placed in chart. Discharge instructions on medications and teachings given to pt and verbalize understanding. Belongings endorsed and signed by patient. Per case management patient will be picked up by ambulance at 8:30 pm. Patient made aware and she refused to notify her family about discharge. Denies any pain at this time. Will endorse care to next shift.
--- NOTE | 2017-01-30 19:30 | NUR ---
MS INITIAL NOTE RECEIVED PT AWAKE AND ALERT, ORIENTED X3, NO COMPLAINT OF PAIN OR RESPIRATORY DISTRESS NOTED DURING PHYSICAL ASSESSMENT, PT HAS AN ORDER FOR D/C, ALL PAPER WORK READY, AMBULANCE SCHEDULE FOR KETTLE ROOM HELPER AT 20:30, WILL CONTINUE TO MONITOR CLOSELY UNTIL D/C AND ATTEND TO NEEDS ACCORDINGLY.
[2017-01-30 20:00] VITALS: BP 143/63
[2017-01-30 20:34] VITALS: BP 143/63
--- NOTE | 2017-01-30 20:50 | NUR ---
MS D/C NOTE AMBULANCE IS HERE TO AIRBRUSH ARTIST PHOTOGRAPHY PT TO TRANSPORT HOME, PT IS STABLE, NO COMPLAINT OF PAIN OR RESPIRATORY DISTRESS NOTED, D/C TEACHING DONE AND D/C PAPERWORK GIVEN TO PT, IV D/C'D, BELONGING GIVEN TO PT'S SON, REPORT GIVEN TO EMT, MD AND CHARGE NURSE NOTIFIED OF D/C.
== END 2017-01-30 21:15 | disposition home health service (06) | DRG 463 ==
LOC: ER 18:38 → MED 23:49
PROVIDERS: ADMIT Nurse Practitioner Acute Care; ATTEND Nurse Practitioner Acute Care
DX: N39.0 Urinary tract infection, site not specified (principal); N17.0 Acute kidney failure with tubular necrosis; E66.01 Morbid (severe) obesity due to excess calories; B96.20 Unspecified Escherichia coli [E. coli] as the cause of diseases classified elsewhere; Z68.45 Body mass index [BMI] 70 or greater, adult; D63.8 Anemia in other chronic diseases classified elsewhere; E83.42 Hypomagnesemia; E87.6 Hypokalemia; I10 Essential (primary) hypertension; J45.909 Unspecified asthma, uncomplicated; K59.00 Constipation, unspecified; Z88.0 Allergy status to penicillin; Z88.8 Allergy status to other drugs, medicaments and biological substances; Z90.49 Acquired absence of other specified parts of digestive tract; Z79.899 Other long term (current) drug therapy; R32 Unspecified urinary incontinence; W19.XXXA Unspecified fall, initial encounter; Y92.009 Unspecified place in unspecified non-institutional (private) residence as the place of occurrence of the external cause; M54.5 Low back pain
CPT/HCPCS: 36415; 71010-TC; 72100-TC; 72170-TC; 80048-TC; 80061-TC; 80076-TC; 81000-TC; 82728-TC; 83540-TC; 83605-TC; 83690-TC; 83735-TC; 84100-TC; 84443-TC; 84484-TC; 85025-TC; 85730-TC; 87081-TC; 87086-TC; 87186-TC; 94799-TC; 97001-TC; 97110-TC; A4216; A4606; J1644; J1956; J2270; J2405; J7030; Z7610

== ENCOUNTER 2025-05-31 19:51 | Inpatient (IN) | payer MEDICARE, OTHER ==
[~2025-05-31] VITALS: Ht 170.2 cm; Wt 111.6 kg
[~2025-05-31 19:51] MED LIST changes: +DOCU100C36 PO; +FLUT16SP16 NS; +FURO20TA4 PO; +GABA600T12 PO; -GABA600T2; -HYDR25TA4; -LISI-607; +LISI10TA29 PO; +LORA10TA7 PO; +POTA10CA43 PO; -VICODIN
[2025-05-31 20:41] LABS: PLATELET COUNT (AUTO) 344 K/uL (150-450); RED BLOOD CELL COUNT(AUTO) 5.73 MIL/uL (4.0-5.2); RED CELL DISTRIBUTION WIDTH 15.4 % (11.5-15.0); WHITE BLOOD COUNT (AUTO) 17.6 K/uL (4.3-11.0)
[2025-05-31 20:51] LABS: CALCIUM, SERUM 10.2 mg/dL (8.5-10.1); CREATININE 1.0 mg/dL (0.6-1.3); SODIUM SERUM 137.0 mmol/L (136-145); UREA NITROGEN, BLOOD 15.0 mg/dL (7-18)
[2025-05-31 20:56] LABS: ASPARTATE AMINOTRANSFERASE 22.0 U/L (15-37); TOTAL PROTEIN, SERUM 7.7 g/dL (6.4-8.2)
[2025-05-31] MEDS ORDERED: IV NS 0.9% 250 ML IV ONE (21:00)
[2025-05-31] MEDS ORDERED: IOHEXOL-350 100 ML VIAL IV ONE (21:00)
[2025-05-31] MEDS ORDERED: ONDANSETRON HCL/PF 4 MG/2 ML VIAL ONE (21:08)
[2025-05-31] MEDS ORDERED: ASPIRIN 325 MG TABLET ONE (21:09)
[2025-05-31] MEDS: ASPIRIN 325 MG TABLET PO ONE (21:09)
[2025-05-31] MEDS ORDERED: MORPHINE SULFATE INJ 2 MG/ML DISP.SYRIN ONE (21:12)
[2025-05-31] MEDS: MORPHINE SULFATE INJ 2 MG/ML DISP.SYRIN IV ONE (21:14)
[2025-05-31] MEDS: ONDANSETRON HCL/PF - ER 4 MG/2 ML VIAL IV ONE (21:14)
[2025-05-31] MEDS: IV NS 0.9% 500 ML BAG IV ONE (21:14)
[2025-05-31] MEDS ORDERED: HEPARIN INFUSION/D5W 500 ML IV ONE (22:04)
[2025-05-31] MEDS ORDERED: HEPARIN SODIUM, PORCINE 5000 UNITS/1 ML VIAL ONE (22:04)
[2025-05-31] MEDS: HEPARIN SODIUM, PORCINE 5000 UNITS/1 ML VIAL IV ONE (22:07)
[2025-05-31] MEDS: HEPARIN INFUSION/D5W 500 ML IV ONE (22:22)
[2025-06-01] VITALS (10 sets, daily range): BP systolic 88–140; BP diastolic 52–89; TEMP 97.3–98.6; O2SAT 94–97
[2025-06-01] MEDS ORDERED: HEPARIN INFUSION/D5W 500 ML IV PRN
[2025-06-01] MEDS ORDERED: MAGNESIUM HYDROXIDE 30 ML UDC PO PRN
[2025-06-01] MEDS ORDERED: MAG HYDROX/AL HYDROX/SIMETH 30 ML UDC PO PRN
[2025-06-01 01:22] LABS: INR 1.14 (0.91-1.10)
[2025-06-01] MEDS: PANTOPRAZOLE 40 MG VIAL IV SCH (02:35)
[2025-06-01] MEDS: ONDANSETRON HCL/PF 4 MG/2 ML VIAL IVP PRN (02:35)
[2025-06-01] MEDS: HEPARIN SODIUM, PORCINE 5000 UNITS/1 ML VIAL IV ONE (03:48)
[2025-06-01] MEDS: HEPARIN INFUSION/D5W 500 ML IV PRN (04:08)
[2025-06-01 07:15] LABS: PLATELET COUNT (AUTO) 355 K/uL (150-450); RED BLOOD CELL COUNT(AUTO) 5.86 MIL/uL (4.0-5.2); RED CELL DISTRIBUTION WIDTH 16.0 % (11.5-15.0); WHITE BLOOD COUNT (AUTO) 14.6 K/uL (4.3-11.0)
[2025-06-01 07:35] LABS: CALCIUM, SERUM 9.6 mg/dL (8.5-10.1); CREATININE 0.9 mg/dL (0.6-1.3); PHOSPHORUS 4.2 mg/dL (2.5-4.9); SODIUM SERUM 140.0 mmol/L (136-145); UREA NITROGEN, BLOOD 13.0 mg/dL (7-18)
[2025-06-01] MEDS ORDERED: TOPI50TA24 PO (08:08)
[2025-06-01] MEDS ORDERED: LACO200T2 PO (08:08)
[2025-06-01 08:26] LABS: LDL 112.0 mg/dL (0-99)
[2025-06-01] MEDS ORDERED: BUDE10.22 INH (08:50)
[2025-06-01] MEDS ORDERED: EMPA1TAB21 PO (08:50)
[2025-06-01] MEDS ORDERED: FLUV80TA PO (08:50)
[2025-06-01] MEDS ORDERED: POTASSIUM CITRATE PO (08:50)
[2025-06-01] MEDS ORDERED: SEMA14TA PO (08:50)
[2025-06-01] MEDS ORDERED: FOLI0.4T6 PO (08:50)
[2025-06-01] MEDS ORDERED: MIRABEGRON PO (08:50)
[2025-06-01] MEDS ORDERED: ESTR42.5 VG (08:50)
[2025-06-01] MEDS ORDERED: FUROSEMIDE 20 MG TABLET PO SCH (09:00)
[2025-06-01] MEDS: LISINOPRIL (10MG) 10 MG TABLET PO SCH (09:00)
[2025-06-01] MEDS: FLUTICASONE PROPIONATE 16 GM BOTTLE NS SCH (09:42)
[2025-06-01] MEDS: ASPIRIN 81 MG TAB.CHEW PO SCH (09:43)
[2025-06-01] MEDS: LORATADINE 10 MG TABLET PO SCH (09:43)
[2025-06-01] MEDS: LACOSAMIDE 50 MG TABLET PO SCH (09:43)
[2025-06-01] MEDS: DOCUSATE SODIUM 100 MG CAPSULE PO SCH (09:43)
[2025-06-01] MEDS: ATORVASTATIN 40 MG TABLET PO SCH (09:43)
[2025-06-01] MEDS: GABAPENTIN 300 MG CAPSULE PO SCH (09:43)
[2025-06-01] MEDS: PANTOPRAZOLE 40 MG TABLET.DR PO SCH (09:43)
[2025-06-01 10:32] LABS: INR 1.14 (0.91-1.10)
[2025-06-01] MEDS: TOPIRAMATE 25 MG TABLET PO SCH (10:35)
[2025-06-01] MEDS: GABAPENTIN 400 MG CAPSULE PO SCH (13:00)
[2025-06-01] MEDS: METOPROLOL TARTRATE 50 MG TABLET PO SCH (13:10)
[2025-06-01] MEDS: FUROSEMIDE 40 MG/4 ML VIAL IV SCH (14:30)
[2025-06-01] MEDS ORDERED: LACOSAMIDE 50 MG TABLET PO SCH (17:00)
[2025-06-01 19:56] LABS: INR 1.17 (0.91-1.10)
[2025-06-02] VITALS: BP 114/68; TEMP 97.6; O2SAT 96
[2025-06-02 04:00] VITALS: BP 116/78; TEMP 97.6; O2SAT 96
[2025-06-02 04:12] LABS: PLATELET COUNT (AUTO) 271 K/uL (150-450); RED BLOOD CELL COUNT(AUTO) 5.12 MIL/uL (4.0-5.2); RED CELL DISTRIBUTION WIDTH 15.8 % (11.5-15.0); WHITE BLOOD COUNT (AUTO) 10.1 K/uL (4.3-11.0)
[2025-06-02 04:23] LABS: ASPARTATE AMINOTRANSFERASE 25.0 U/L (15-37); CALCIUM, SERUM 8.7 mg/dL (8.5-10.1); CREATININE 0.9 mg/dL (0.6-1.3); PHOSPHORUS 4.0 mg/dL (2.5-4.9); SODIUM SERUM 137.0 mmol/L (136-145); TOTAL PROTEIN, SERUM 6.2 g/dL (6.4-8.2); UREA NITROGEN, BLOOD 16.0 mg/dL (7-18)
[2025-06-02 04:32] LABS: INR 1.17 (0.91-1.10)
[2025-06-02 08:00] VITALS: BP 103/67; TEMP 97.7; O2SAT 98
[2025-06-02] MEDS ORDERED: TOPIRAMATE 25 MG TABLET PO SCH (09:00)
[2025-06-02] MEDS: Z GUARD REMEDY 4 OZ OINT TP PRN (11:27)
[2025-06-02] MEDS: Z GUARD REMEDY 4 OZ OINT TP SCH (11:28)
[2025-06-02 12:00] VITALS: BP 108/64; TEMP 98.2; O2SAT 96
[2025-06-02 16:00] VITALS: BP 111/65; TEMP 97.8; O2SAT 98
[2025-06-02] MEDS: CLOTRIMAZOLE 1% 15 GM TUBE TP SCH (17:24)
[2025-06-02 20:00] VITALS: BP 128/66; TEMP 98.1; O2SAT 98
[2025-06-03] VITALS: BP 104/65; TEMP 97.6; O2SAT 98
[2025-06-03] MEDS: ACETAMINOPHEN 325 MG TABLET PO PRN (03:01)
[2025-06-03 04:00] VITALS: BP 99/70; TEMP 97.7; O2SAT 97
[2025-06-03 08:00] VITALS: BP 106/64; TEMP 98.8; O2SAT 98
[2025-06-03 10:52] LABS: INR 1.17 (0.91-1.10)
[2025-06-03 12:00] VITALS: BP 116/71; TEMP 97.3; O2SAT 99
[2025-06-03] MEDS: TRAMADOL HCL 50 MG TABLET PO PRN (13:16)
[2025-06-03 16:00] VITALS: BP 100/70; TEMP 98.4; O2SAT 97
[2025-06-03 20:00] VITALS: BP 104/59; TEMP 98.1; O2SAT 96
[2025-06-04] VITALS: BP 104/63; TEMP 97.7; O2SAT 95
[2025-06-04 04:00] VITALS: BP 96/57; TEMP 98; O2SAT 96
[2025-06-04] MEDS ORDERED: HEPARIN INFUSION/D5W 500 ML IV ONE (05:26)
[2025-06-04 05:58] VITALS: BP 96/57
== END 2025-06-04 06:37 | disposition short-term general hospital (02) | DRG 280 ==
LOC: ER 19:56 → TELE1 23:40
PROVIDERS: ADMIT Nurse Practitioner Acute Care; ATTEND Student in an Organized Health Care Education/Training Program
DX: I11.0 Hypertensive heart disease with heart failure (principal); I50.23 Acute on chronic systolic (congestive) heart failure; I21.A1 Myocardial infarction type 2; D68.59 Other primary thrombophilia; E66.01 Morbid (severe) obesity due to excess calories; J45.909 Unspecified asthma, uncomplicated; I71.21 Aneurysm of the ascending aorta, without rupture; D72.829 Elevated white blood cell count, unspecified; T50.Z95A Adverse effect of other vaccines and biological substances, initial encounter; Y92.9 Unspecified place or not applicable; E78.5 Hyperlipidemia, unspecified; Z79.899 Other long term (current) drug therapy; G47.33 Obstructive sleep apnea (adult) (pediatric); Z68.38 Body mass index [BMI] 38.0-38.9, adult
CPT/HCPCS: 36415; 71045-TC; 80048-TC; 80053-TC; 80061-TC; 80076-TC; 82962-TC; 83690-TC; 83735-TC; 84100-TC; 84484-TC; 85025-TC; 85610-TC; 85730-TC; 93307-TC; A4223; G0378; J1644; J1938; J2270; J2405; J2470; J7040; J7050; Q9967

== ENCOUNTER 2025-06-07 01:01 | Inpatient (IN) | payer MEDICARE, OTHER ==
[~2025-06-07] VITALS: Ht 170.2 cm; Wt 110.2 kg
[~2025-06-07 01:01] MED LIST changes: -ACET-907; +BUDE10.22 INH; -DOCU100C36 PO; +EMPA1TAB21 PO; +ESTR42.5 VG; +FLUV80TA PO; +FOLI0.4T6 PO; +LACO200T2 PO; -LISI10TA29 PO; +MIRABEGRON PO; -POTA10CA43 PO; +POTASSIUM CITRATE PO; +SEMA14TA PO; +TOPI50TA24 PO; -TRAM50TA2
[2025-06-07 20:00] VITALS: BP 113/61; TEMP 97.9
[2025-06-07] MEDS ORDERED: TEMAZEPAM 15 MG CAPSULE PO PRN (23:30)
[2025-06-07] MEDS ORDERED: MAG HYDROX/AL HYDROX/SIMETH 30 ML UDC PO PRN (23:30)
[2025-06-08] VITALS: BP 125/69; TEMP 98.1
[2025-06-08] MEDS: ONDANSETRON HCL/PF 4 MG/2 ML VIAL IVP PRN (02:40)
[2025-06-08] MEDS: MAGNESIUM HYDROXIDE 30 ML UDC PO PRN (02:41)
[2025-06-08 04:00] VITALS: BP 118/72; TEMP 98; O2SAT 93
[2025-06-08 07:37] LABS: PLATELET COUNT (AUTO) 252 K/uL (150-450); RED BLOOD CELL COUNT(AUTO) 5.12 MIL/uL (4.0-5.2); RED CELL DISTRIBUTION WIDTH 15.6 % (11.5-15.0); WHITE BLOOD COUNT (AUTO) 7.6 K/uL (4.3-11.0)
[2025-06-08 08:00] VITALS: BP 125/64; TEMP 98.1; O2SAT 93
[2025-06-08 08:05] LABS: CALCIUM, SERUM 9.8 mg/dL (8.5-10.1); CREATININE 1.0 mg/dL (0.6-1.3); PHOSPHORUS 4.4 mg/dL (2.5-4.9); SODIUM SERUM 141.0 mmol/L (136-145); UREA NITROGEN, BLOOD 16.0 mg/dL (7-18)
[2025-06-08 08:06] LABS: LDL 92.0 mg/dL (0-99)
[2025-06-08] MEDS: MORPHINE SULFATE INJ 2 MG/ML DISP.SYRIN IV PRN (08:06)
[2025-06-08] MEDS: PANTOPRAZOLE 40 MG TABLET.DR PO SCH (08:06)
[2025-06-08] MEDS: ACETAMINOPHEN 325 MG TABLET PO PRN (08:22)
[2025-06-08] MEDS ORDERED: ASPIRIN 81 MG TAB.CHEW PO SCH (09:30)
[2025-06-08] MEDS: DILTIAZEM HCL CD 240 MG PO SCH (10:30)
[2025-06-08] MEDS: ATORVASTATIN 10 MG TABLET PO SCH (10:30)
[2025-06-08 12:00] VITALS: BP 99/58; TEMP 98.2; O2SAT 94
[2025-06-08] MEDS: LACOSAMIDE 50 MG TABLET PO SCH (12:34)
[2025-06-08] MEDS: TOPIRAMATE 25 MG TABLET PO SCH (12:42)
[2025-06-08 16:00] VITALS: BP 117/70; TEMP 98.4; O2SAT 97
[2025-06-08 20:00] VITALS: BP 114/64; TEMP 97.9; O2SAT 96
[2025-06-09] VITALS: BP 121/81; TEMP 98; O2SAT 99
[2025-06-09 04:00] VITALS: BP 148/87; TEMP 98.1; O2SAT 100
[2025-06-09 08:00] VITALS: BP 128/82; TEMP 97.9; O2SAT 98
[2025-06-09] MEDS: Z GUARD REMEDY 4 OZ OINT TP PRN (08:48)
[2025-06-09 13:25] VITALS: BP 128/82; TEMP 97.9; O2SAT 98
== END 2025-06-09 20:43 | DRG 291 ==
LOC: TELE1 19:17 → MEDSG1 06-09 10:06
PROVIDERS: ADMIT Internal Medicine; ATTEND Internal Medicine
DX: I11.0 Hypertensive heart disease with heart failure (principal); I50.23 Acute on chronic systolic (congestive) heart failure; D68.59 Other primary thrombophilia; D72.828 Other elevated white blood cell count; E66.01 Morbid (severe) obesity due to excess calories; E11.9 Type 2 diabetes mellitus without complications; D72.829 Elevated white blood cell count, unspecified; J45.909 Unspecified asthma, uncomplicated; G40.909 Epilepsy, unspecified, not intractable, without status epilepticus; I71.21 Aneurysm of the ascending aorta, without rupture; E78.5 Hyperlipidemia, unspecified; Z68.38 Body mass index [BMI] 38.0-38.9, adult; Z88.0 Allergy status to penicillin; G47.33 Obstructive sleep apnea (adult) (pediatric); Y84.8 Other medical procedures as the cause of abnormal reaction of the patient, or of later complication, without mention of misadventure at the time of the procedure; Y82.8 Other medical devices associated with adverse incidents; Y92.009 Unspecified place in unspecified non-institutional (private) residence as the place of occurrence of the external cause; T50.Z95A Adverse effect of other vaccines and biological substances, initial encounter
CPT/HCPCS: 36415; 80048-TC; 80061-TC; 83735-TC; 84100-TC; 85025-TC; 94799-TC; 97112-TC; 97116-TC; 97530-TC; G0378; J2270; J2405